=== PATIENT | female | born 1980 | race Caucasian/White ===

== ENCOUNTER 2017-07-28 15:09 | Emergency (ER) | payer OTHER ==
[2017-07-28 16:17] VITALS: BMI 27.8
[2017-07-28 16:51] LABS: SQUAMOUS EPITHIAL < 1 /hpf (0-5); URINE BILIRUBIN NEGATIVE (NEGATIVE); URINE BLOOD NEGATIVE (NEGATIVE); URINE CLARITY CLEAR (Clear); URINE COLOR YELLOW (YELLOW); URINE GLUCOSE (UA) NEG (Normal); URINE LEUKOCYTE ESTERASE NEG Leu/uL (Negative); URINE NITRATE NEGATIVE (NEGATIVE); URINE PROTEIN NEGATIVE (NEGATIVE); URINE UROBILINOGEN 0.2-1.0 mg/dL (0.2-1.0)
[2017-07-28 17:05] LABS: URINE BACTERIA FEW (<OCC)
[2017-07-28 17:25] LABS: SPECIMEN COMMENT SL. CLOUDY
--- NOTE | 2017-07-28 18:38 | US ---
PROCEDURE: OB Pelvic Ultrasound HISTORY: , h/o delivery COMPARISON: None available. FINDINGS: UTERUS: Gestational sac: Single intrauterine fetus in cephalic presentation. Heart rate: 154 bpm. BPD: 7.5 cm corresponding to 30 weeks and 1 day of gestational age. HC: 26.6 cm corresponding to 29 weeks and 0 day of gestational age. AC: 23.4 cm corresponding to 27 weeks and 5 days of gestational age. FL: 5.5 cm corresponding to 28 weeks and 6 days of gestational age. age (Ultrasound estimated): 29 weeks and 0 days Fiona-gestational hemorrhage: None. Date of delivery (Ultrasound estimated) : 10/13/2017 Placenta is anterior. The amniotic fluid index is 13.7 cm and within normal limits. CERVIX: Long and closed. No cervical abnormality seen. RIGHT OVARY: Not visualized LEFT OVARY: Not visualized. FREE FLUID: None. OTHER FINDINGS: None. IMPRESSION: Single live intrauterine fetus in cephalic presentation with mean gestational age of 29 weeks and 0 days. The estimated date of delivery by ultrasound is 10/13/2017. The ultrasound dates correspond with the clinical dates. Placenta is anterior and amniotic fluid is adequate. The cervix is closed. Please note this is a limited OB examination done on an emergent basis. Dedicated anatomic survey is advised.
--- NOTE | 2017-07-29 09:44 | OBHP ---
Datetime: 07/28/2017 20:00 IP Adm Impression: , intrauterine IP Admit Plan: Discharge home Admit Comment, IP Provider: UA negative; FFN: NEG; US: cervical length 4.1 cm vaginal discharge spontaneously resolved er precautions given Pt cleared for dc Case d/w Dr. Camille Ruelas MD Family Medicine, PGY1 FHR - Baseline A Provider: 140 EGA AdmitDate IP: 27.4 Vital Signs Provider: Reviewed; Within Normal Limits IP Chief Complaint: Suspected ruptured membranes; evaluation NICHD Variability Prov Fetus A: Moderate 6-25bpm NICHD Accel Fetus A IP Provider: [id number] FHR Category Provider Fetus A: Category I NICHD Decel Fetus A IP Provider: None Dilatation, Provider: closed Datetime: 07/28/2017 17:47 Pelvic Type - PN: Adequate Extremities - PN: Normal Abdomen - PN: Normal Back - PN: Normal Breast - PN: Not Done Lungs - PN: Normal Heart - PN: Normal Thyroid - PN: Not Done Neurologic - PN: Normal HEENT - PN: Normal General - PN: Normal Pool Provider: Negative Genitourinary Exam: Normal DTRs - PN: Not Done
--- NOTE | 2017-07-29 09:46 | OBHP ---
Datetime: 07/28/2017 20:00 EGA AdmitDate IP: 27.4 Datetime: 07/28/2017 17:47 Admit Comment, IP Provider: 37 yo ega 27.0 presents to the [facility] with leakage of fluid in her va sia. -: VB, CTX +: LOF, FM pnc: [facility] pobhx: SAB x1, mhx: none surg:none soc: denies smoking, alcohol, illicit drugs rx: none General: pleasant, in no acute distress HEENT: normocephalic, PERRLA; AAOx3 Heart: no murmurs, regular rate and rhythm, S1, S2 normal. Lungs: clear to auscultation bilaterally, no wheezing Abdomen: nontender, gravid CVA: negative Lower extremities: negative for pitting edema 37 yo ega 27.0 presents to the [facility] with leakage of fluid in her vagina. -UA, FFN, US Case d/w Dr. Camille Ruelas MD Family Medicine, PGY1 Addendum: I saw on exam and patient presentation. No evidence on physical exam of rupture of membranes. No e vidence of labor. fibronectin negative and obstetric ultrasound within normal limits. I discussed results with patient and all patient questions answered. Patient will follow up with [facility] as already scheduled. Patient discharged home with labor precautions.
== END 2017-07-28 18:45 | disposition home or self-care (01) ==
LOC: H.EROB2 15:09
DX: O34.62 Maternal care for abnormality of vagina, second trimester (principal); N89.8 Other specified noninflammatory disorders of vagina; Z3A.27 27 weeks gestation of pregnancy

== ENCOUNTER 2017-08-06 18:44 | Emergency (ER) | payer OTHER ==
[2017-08-06 19:51] VITALS: BMI 24.5
[2017-08-06] MEDS ORDERED: Lactated Ringer's 1,000 ML IV SCH ×2 (20:00→20:15)
[2017-08-06 20:44] LABS: ALB/GLOB RATIO 1.1 (1.0-2.1); ALBUMIN 3.6 g/dL (3.5-5.0); CALCIUM 8.5 mg/dL (8.4-10.2); GFR AFRICAN-AMERICAN > 60; GFR NON-AFRICAN AMERICAN > 60
[2017-08-06 20:54] LABS: ALT/SGPT 14 U/L (9-52); AST/SGOT 39 U/L (14-36); BLOOD UREA NITROGEN 11 mg/dl (7-17)
[2017-08-06 21:16] LABS: BASO % 0.2 % (0.0-2.0); EOS # 0.7 K/uL (0.0-0.7); EOS % 6.5 % (0.0-4.0); HEMOGLOBIN 13.2 g/dL (12.0-16.0); LYMPH # 0.9 K/uL (1.0-4.3); LYMPH % 8.4 % (20.0-40.0); MEAN CELL VOLUME 88.1 fl (81.0-99.0); MEAN CORPUSCULAR HEMOGLOBIN 29.3 pg (27.0-31.0); MEAN CORPUSCULAR HGB CONC 33.2 g/dL (33.0-37.0); MEAN PLATELET VOLUME 12.4 fl (7.2-11.7); MONO # 0.8 K/uL (0.0-0.8); MONO % 7.1 % (0.0-10.0); NEUT # 8.3 K/uL (1.8-7.0); NEUT % 77.8 % (50.0-75.0); PLATELET COUNT 134 K/uL (130-400); RBC 4.51 Mil/uL (3.80-5.20); RED CELL DISTRIBUTION WIDTH 13.5 % (11.5-14.5); WHITE BLOOD COUNT 10.7 K/uL (4.8-10.8)
[2017-08-06 22:08] LABS: SQUAMOUS EPITHIAL 2 /hpf (0-5); URINE BACTERIA RARE (<OCC); URINE BILIRUBIN NEGATIVE (NEGATIVE); URINE BLOOD NEGATIVE (NEGATIVE); URINE CALCIUM OXALATE CRYSTALS OCC /hpf (<OCC); URINE CLARITY CLOUDY (Clear); URINE COLOR YELLOW (YELLOW); URINE GLUCOSE (UA) NEG (Normal); URINE HYALINE CAST 0-2 /hpf (0-2); URINE LEUKOCYTE ESTERASE TRACE Leu/uL (Negative); URINE NITRATE NEGATIVE (NEGATIVE); URINE PROTEIN 30 mg/dL (NEGATIVE); URINE UROBILINOGEN 0.2-1.0 mg/dL (0.2-1.0)
--- NOTE | 2017-08-06 22:30 | OBHP ---
Datetime: 08/06/2017 19:56 IP Adm Impression: , intrauterine IP Chief Complaint Other: projective vomiging IP Admit Plan: Observation/Evaluation Admit Comment, IP Provider: 37 yo edc 11/02/17 @ 28.6wks w/ c/o projective vomiting sinc 16:0 0 states son has been sick and was told that 3other children had "stomach bug". denies ctxs, srom, v ag bleeding, coitus, decreased fm. medic: finesse; pnv obhx: @ 32wk sab pmh _ pshx: mic shx: denies tobacco,etoh, or illicit drugs nkda i: 28.6wks Gastroenteritis TPT p: IV hydration cmp, cbc, ua ffn. us for CLM Pelvic Type - PN: Adequate Extremities - PN: Normal Abdomen - PN: Normal Back - PN: Normal Lungs - PN: Normal Heart - PN: Normal HEENT - PN: Normal General - PN: Normal FHR - Baseline A Provider: 130 Membranes, Provider: Intact Contraction Comments Provider: q7-8min Vital Signs Provider: Reviewed NICHD Variability Prov Fetus A: Moderate 6-25bpm NICHD Accel Fetus A IP Provider: [id number] FHR Category Provider Fetus A: Category I NICHD Decel Fetus A IP Provider: None Dilatation, Provider: 0 Effacement, Provider: 0 Station, Provider: -4 Genitourinary Exam: Normal Datetime: 07/28/2017 20:00 EGA AdmitDate IP: 27.4
[2017-08-06] MEDS ORDERED: Promethazine 25 MG in Sodium Chloride 0.9% 50 ML IVPB ONE (23:00)
[2017-08-07 00:53] LABS: BANDS 1 % (0-2); EOSINOPHIL 9 % (0-7); LYMPHOCYTE 10 % (20-50); MONOCYTE 8 % (0-10); NEUTROPHIL 72 % (42-75); TOTAL CELLS COUNTED 100
[2017-08-07 00:54] LABS: PLATELET ESTIMATE NORMAL (NORMAL)
[2017-08-07 04:53] VITALS: BP 102/54; PULSE 78; O2SAT 99
--- NOTE | 2017-08-07 08:49 | US ---
PROCEDURE: OB Pelvic Ultrasound HISTORY: threatened labor COMPARISON: Pelvic ultrasound dated 07/28/2017. FINDINGS: UTERUS: BPD: 8.2 centimeter compatible with estimated gestational age of 32 weeks, 5 days. HC: 28.1 centimeter compatible with estimated gestational age of 30 weeks, 5 days. AC: 25.6 centimeter compatible with estimated gestational age of 29 weeks, 5 days. FL: 5.9 centimeter compatible with estimated gestational age of 30 weeks, 4 days. Placenta: Anterior. Presentation: Cephalic. Heart rate: 140 bpm. age (Ultrasound estimated): 31 weeks, 0 days Fiona-gestational hemorrhage: None. Date of delivery (Ultrasound estimated) : 10/08/2017 CERVIX: Long and closed. Measures 4.2 centimeter. No cervical abnormality seen. RIGHT OVARY: Not visualized LEFT OVARY: Not visualized FREE FLUID: None. OTHER FINDINGS: None. IMPRESSION: Single live intrauterine gestation. Average ultrasound age of 31 weeks, 0 days. heart rate 140 beats per minute. Cervix long and closed.
== END 2017-08-06 23:45 | disposition home or self-care (01) ==
LOC: H.EROB2 18:44
DX: O26.93 Pregnancy related conditions, unspecified, third trimester (principal); K52.9 Noninfective gastroenteritis and colitis, unspecified; Z3A.28 28 weeks gestation of pregnancy
CPT/HCPCS: 76817; 80053; 81003; 82731; 85025; 96374; 99283; J2405; J7120